=== PATIENT | female | born 1960 | race Caucasian/White ===

== ENCOUNTER 2016-10-24 15:30 | Inpatient (IN) | payer SELFPAY ==
[~2016-10-24] VITALS: Ht 154.9 cm; Wt 82.7 kg
[2016-10-24] MEDS ORDERED: IV NORMAL SALINE 1000ML BAG 1,000 ML IV SCH ×2 (16:02→18:01)
[2016-10-24 16:10] LABS: BASO # 0.1 x10^3/uL (0.0-0.2); BASO % 1 % (0-3); EOS % 1 % (0-3); HEMATOCRIT 41.6 % (36.0-47.0); HEMOGLOBIN 13.9 g/dL (12.0-15.5); LYMPH # 3.2 x10^3/uL (1.0-4.8); LYMPH % 37 % (24-48); MEAN CORPUSCULAR HEMOGLOBIN 28 pg (25-35); MEAN CORPUSCULAR HGB CONC 34 g/dL (31-37); MEAN CORPUSCULAR VOLUME 84 fL (79-100); MONO % 7 % (0-9); NEUT % 55 % (31-73); PLATELET COUNT 270 x10^3/uL (140-400); RED BLOOD COUNT 4.97 x10^6/uL (3.50-5.40); RED CELL DISTRIBUTION WIDTH 13.8 % (11.5-14.5); WHITE BLOOD COUNT 8.6 x10^3/uL (4.0-11.0)
[2016-10-24] MEDS ORDERED: ASPIRIN 81 MG TAB.CHEW PO ONE (16:15)
[2016-10-24 16:25] LABS: GFR 56.9; POTASSIUM 3.3 mmol/L (3.5-5.1)
[2016-10-24] MEDS ORDERED: IV NORMAL SALINE 1000ML BAG 1,000 ML IV ONE (16:30)
[2016-10-24 16:32] LABS: ALBUMIN 3.6 g/dL (3.4-5.0); DIRECT BILIRUBIN 0.1 mg/dL (0.0-0.2); MAGNESIUM 2.1 mg/dL (1.8-2.4); TOTAL BILIRUBIN 0.4 mg/dL (0.2-1.0); TOTAL PROTEIN 7.5 g/dL (6.4-8.2)
--- NOTE | 2016-10-24 16:33 | EKG ---
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
--- NOTE | 2016-10-24 16:38 | RAD ---
Portable chest, 10/24/2016: History: Chest pain The heart size and pulmonary vascularity are normal. No pulmonary infiltrates are seen. There is no evidence of pleural fluid. Degenerative changes are evident in the spine. IMPRESSION: No acute cardiopulmonary abnormality is detected.
[2016-10-24 16:39] LABS: CKMB MASS 0.5 ng/mL (0.0-3.6); CREATINE KINASE 35 U/L (26-192)
--- NOTE | 2016-10-24 17:06 | RAD ---
PROCEDURE Head CT without contrast. HISTORY Memory loss. TECHNIQUE Computed tomographic images of the head were obtained without contrast. One or more of the following individualized dose reduction techniques were utilized for this examination: 1. Automated exposure control; 2. Adjustment of the mA and/or kV according to patient size; 3. Use of iterative reconstruction technique. COMPARISON None. FINDINGS There is no acute or subacute hemorrhage. There is no mass effect or midline shift. There is mild ventricular enlargement, slightly greater than expected for cerebral volume. There is a prominent sulcus within the right frontoparietal junction at the vertex, likely developmental. The richmond and white matter differentiation pattern is intact. There are subtle areas of hypodensity within the cerebral white matter, artifactual or due to chronic small vessel disease. There are suspected chronic fracture deformities of the nasal bones. The orbits and mastoid air cells are unremarkable. No calvarial lesion is seen. IMPRESSION 1. Mild ventricular enlargement, slightly greater than expected for cerebral volume. The possibility of mild hydrocephalus is not excluded. 2. Subtle areas of hypodensity within the cerebral white matter, a nonspecific finding which is likely artifactual or due to chronic small vessel disease. Electronically signed by: Eun Seay (Oct 24, 2016 17:04:44)
[2016-10-24 17:38] LABS: BILIRUBIN,URINE NEGATIVE (NEG); GLUCOSE,URINE NEGATIVE (NEG); NITRITE,URINE POSITIVE (NEG); PROTEIN,URINE NEGATIVE (NEG-TRACE); UROBILINOGEN,URINE 0.2 mg/dL (0.2 mg/dL)
[2016-10-24 17:48] LABS: BARBITURATES NEG (NEG); BENZODIAZEPINES NEG (NEG); CANNABINOIDS NEG (NEG); COCAINE NEG (NEG); METHADONE NEG (NEG); OPIATES NEG (NEG); PHENCYCLIDINE NEG (NEG)
[2016-10-24 17:49] LABS: BACTERIA,URINE MANY /HPF (0-FEW); RBC,URINE 0 /HPF (0-2); SQUAMOUS EPITHELIAL CELL,UR FEW /LPF
[2016-10-24 17:50] LABS: ETHANOL, URINE NEG (NEG)
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
[2016-10-24] MEDS ORDERED: ONDANSETRON PF 4 MG/2 ML VIAL. IV PRN (18:15)
[2016-10-24] MEDS ORDERED: ACETAMINOPHEN 325 MG TABLET. PO PRN (18:15)
--- NOTE | 2016-10-24 18:37 | ACF ---
Admission Forms Criteria MENTAL STATUS CHANGE Clinical Indications for Inpatient Care (Place 'X' for any and all applicable criteria): Ongoing inpatient care may be needed for ANY ONE of the following(1)(2)(3)(5)(6) : [X]I. Suspected serious etiology (eg, medical disorder, FRAMING CONSULTANT event) of mental status change [ ]II. Danger to self or others not manageable at lower level of care [ ]III. Grave disability (eg, inability to perform self care necessary at lower level of care) [ ]IV. Agitation or inappropriate behavior interfering with care for primary condition (eg, attempting to discontinue lines or drains prematurely, unable to cooperate with respiratory care) [ ]V. Delirium [A] [D][E] as described by ANY ONE of the following(26): [ ]a) Delirium due to alcohol or sedative [F] withdrawal [ ]b) Delirium of uncertain etiology that has not responded to appropriate empiric treatment [ ]c) Delirium that prevents performance of a life-sustaining function (eg, feeding or hydrating oneself) [ ]. General contraindications and/or Inappropriate clinical situations for Observational Care in patients with Mental Status Change, when ANY ONE of the following is required: [ ]a) Prediction of prolongation of LOS based on ANY ONE of the following may be considered as a contraindication for observational care 2, 3, 4, 5, 6, 7, 8, 9, 10, 11 [ ]i) Age > 65 yrs. [ ]ii) Patient arriving by ambulance [ ]iii) Patient with high acuity [ ]iv) Patient requiring vital sign monitoring [ ]v) Patient on IV medication [ ]b) Systolic blood pressures 180mmHg 3,12 [ ]c) Patient with altered mental status including delirium and other alteration of consciousness, (3) [ ]d) Patient whose discharge disposition will be to a senior care home or rehabilitation home should not be managed in Emergency Department Observation Unit. CMS rule requires 3 days hospital stay before such placement.3,13 [ ]e) Patient with failure to thrive due to broad array of etiologies 3,16,17 [ ]f) Inability to ambulate 3,14 Extended stay beyond goal length of stay for the primary condition may be needed until ALL of the following are present(3)(5): [ ]a) Underlying medical etiology of mental status change is absent, or has been established and adequately treated [ ]b) Danger to self or others is absent or manageable at lower level of care. [ ]c) Behavior crisis management, including physical or chemical restraints, is not required or available at lower level of car [ ]d) Substance or alcohol withdrawal is absent or manageable at lower level of care. [ ]e) Behavioral symptoms (eg, agitation, somnolence, inappropriate behavior) are absent, or are manageable at lower level of care. The original [facility] content created by [facility] has been revised. The portions of the content which have been revised are identified through the use of italic text or in bold, and [facility] has neither reviewed nor approved the modified material. All other unmodified content is copyright [facility]. Please see references footnoted in the original [facility] edition 2016 Admission Criteria Met?: Yes RONNIE AREVALO Oct 24, 2016 18:37
[2016-10-24 19:00] VITALS: BP 150/94
[2016-10-24] MEDS: IPRATRPIUM/ALBUTEROL 0.5/2.5MG 3 ML NEBU. NEB SCH ×2 (20:00→21:25)
[2016-10-24] MEDS: CEFTRIAXONE SODIUM 1 GM in IV NORMAL SALINE 50ML 50 ML IV SCH (20:58)
[2016-10-24 22:30] LABS: HCO3 ABG 25 mmol/L (21-28); PCO2 ABG 40 mmHg (35-46); PH ABG 7.41 (7.35-7.45); PO2 ABG 98 mmHg (75-108); SAT O2 ABG 97 % (92-99)
[2016-10-24 22:31] LABS: FIO2 ABG 21
[2016-10-24 22:53] VITALS: BP 114/69
[2016-10-24] MEDS ORDERED: FLUO20CA16 PO (23:26)
[2016-10-24] MEDS ORDERED: VENTOLIN HFA18 GM INH (23:26)
[2016-10-25] MEDS ORDERED: FENTANYL PF 100 MCG/2 ML VIAL. IV PRN (01:00)
[2016-10-25] MEDS: HYDROCODONE/APAP 5/325MG TABLET. PO PRN ×4 (05:35→22:54)
[2016-10-25 05:55] LABS: BASO % 1 % (0-3); EOS % 2 % (0-3); HEMATOCRIT 37.8 % (36.0-47.0); HEMOGLOBIN 12.4 g/dL (12.0-15.5); LYMPH # 3.6 x10^3/uL (1.0-4.8); LYMPH % 52 % (24-48); MEAN CORPUSCULAR HEMOGLOBIN 28 pg (25-35); MEAN CORPUSCULAR HGB CONC 33 g/dL (31-37); MEAN CORPUSCULAR VOLUME 86 fL (79-100); MONO % 7 % (0-9); NEUT % 38 % (31-73); PLATELET COUNT 214 x10^3/uL (140-400); RED BLOOD COUNT 4.39 x10^6/uL (3.50-5.40); RED CELL DISTRIBUTION WIDTH 13.5 % (11.5-14.5); WHITE BLOOD COUNT 6.8 x10^3/uL (4.0-11.0)
[2016-10-25 06:25] LABS: CALCIUM 8.4 mg/dL (8.5-10.1); CREATININE 0.8 mg/dL (0.6-1.0); GFR 73.7; POTASSIUM 4.1 mmol/L (3.5-5.1)
[2016-10-25] MEDS: IPRATRPIUM/ALBUTEROL 0.5/2.5MG 3 ML NEBU. NEB SCH ×2 (06:55→10:59)
[2016-10-25 07:00] VITALS: BP 160/95
[2016-10-25] MEDS ORDERED: ALPR2TAB2 PO (09:31)
[2016-10-25] MEDS ORDERED: TRAZ50TA15 PO (09:31)
[2016-10-25] MEDS ORDERED: LEVO100T PO (09:31)
[2016-10-25] MEDS ORDERED: CEFTRIAXONE SODIUM 1 GM in IV NORMAL SALINE 50ML 50 ML IV SCH (10:30)
[2016-10-25] MEDS: ALPRAZOLAM 1 MG TABLET PO PRN (10:36)
[2016-10-25] MEDS: LEVOTHYROXINE 100 MCG TABLET PO SCH (10:36)
[2016-10-25 11:00] VITALS: BP 166/96
[2016-10-25] MEDS ORDERED: GADOBUTROL 10 MMOL/10 ML VIAL IV ONE (13:45)
[2016-10-25] MEDS ORDERED: traZODone 50 MG TABLET. PO SCH (14:00)
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
[2016-10-25] MEDS ORDERED: traZODone 50 MG TABLET. PO PRN (14:43)
[2016-10-25 15:00] VITALS: BP 159/98
[2016-10-25] MEDS: FLUOXETINE HCL 20 MG CAPSULE PO SCH ×2 (15:05→20:44)
[2016-10-25] MEDS: FLUTICASONE 50MCG/NASAL SPRAY 16GM BOTTLE. NS SCH (15:06)
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
[2016-10-25 19:00] VITALS: BP 143/84
[2016-10-25] MEDS: CEFTRIAXONE SODIUM 1 GM in IV NORMAL SALINE 50ML 50 ML IV SCH (19:48)
[2016-10-25 23:00] VITALS: BP 126/75
[2016-10-26 01:10] LABS: VITAMIN D25(OH)TOTAL 17.9 ng/mL (30.0-100.0)
--- NOTE | 2016-10-26 01:35 | EEG ---
DATE OF SERVICE: 10/25/2016 EEG number: [id number] OBJECTIVE: This is a 56-year-old female patient with history of acute mental status changes and confusion and chronic memory loss. EEG was requested to evaluate cerebral activity and help rule out subclinical seizure. METHODS: Twenty electrodes were applied according to the international 10-20 electrode placement system. EKG monitoring, hyperventilation, intermittent photic stimulation, monopolar and bipolar montages are routinely utilized. The record was obtained on a digital system with video monitoring. FINDINGS: 1. Background: The patient was recorded in the awake and drowsy states. No actual sleep state was recorded. The overall background amplitude is 10-20 microvolts. A posterior dominant rhythm of 9-10 Hz is observed. 2. Abnormalities: No specific epileptiform discharge or electrographic seizure is seen. No focal or diffuse slowing. 3. Activation Hyperventilation was performed with good efforts and normal response. Intermittent photic stimulation was performed with photic driving. IMPRESSION: This EEG is a normal study for the awake and drowsy states. No actual sleep state was recorded. No focal, lateralizing, specific epileptiform discharge, or electrographic seizure is seen. LAMAR MC MD DR: MARSHA/ivy JOB#: [id number] / [id number] JANI
[2016-10-26] MEDS: HYDROCODONE/APAP 5/325MG TABLET. PO PRN ×2 (02:46→12:44)
[2016-10-26] MEDS: ALPRAZOLAM 1 MG TABLET PO PRN ×2 (02:47→12:44)
[2016-10-26 03:00] VITALS: BP 144/86
[2016-10-26] MEDS: LEVOTHYROXINE 100 MCG TABLET PO SCH (06:05)
[2016-10-26 07:05] VITALS: BP 153/98
[2016-10-26] MEDS: FLUTICASONE 50MCG/NASAL SPRAY 16GM BOTTLE. NS SCH (08:43)
[2016-10-26] MEDS: FLUOXETINE HCL 20 MG CAPSULE PO SCH ×2 (08:43→16:35)
[2016-10-26] MEDS ORDERED: ALBUTEROL SULFATE 2.5 MG/3 ML NEBU. NEB PRN (09:00)
[2016-10-26] MEDS ORDERED: ALBUTEROL SULFATE 2.5 MG/3 ML NEBU. NEB SCH (09:00)
[2016-10-26] MEDS ORDERED: CALCIUM CARBONATE 500 MG TAB.CHEW PO SCH (10:00)
[2016-10-26 11:00] VITALS: BP 156/87
--- NOTE | 2016-10-26 11:51 | PDOC ---
PROGRESS NOTES Assessment Assessment 10-26-2016 EEG on 10/25/16 was a normal study. Patient refused to be seen and examed by neurology on 10/26/16 stating upset for patient education for mental and cognitive function exercise given on 10/25/16. Objective Objective Vital Signs Date Time Temp Pulse Resp B/P Pulse Ox O2 Delivery O2 Flow Rate FiO2 10/26/16 08:00 Room Air 10/26/16 07:05 97.5 80 16 153/98 100 97.5 Intake and Output 10/26/16 07:00 Intake Total 1000 ml Output Total 650 ml Balance 350 ml Intake Oral 1000 ml Output Urine Total 650 ml # Voids 1 Vitals Signs Vitals VS - Last 72 Hours, by Label Date Time Temp Pulse Resp B/P Pulse Ox O2 Delivery O2 Flow Rate FiO2 10/26/16 08:00 Room Air 10/26/16 07:05 97.5 80 16 153/98 100 Room Air 97.5 10/26/16 03:48 98 Room Air 10/26/16 03:00 98.2 85 18 144/86 98 Room Air 98.2 10/26/16 02:46 98 Room Air 10/25/16 23:00 97.7 85 18 126/75 95 Room Air 97.7 10/25/16 22:54 98 Room Air 10/25/16 20:00 Room Air 10/25/16 19:00 99.3 82 18 143/84 99 Room Air 99.3 10/25/16 18:10 98 Room Air 10/25/16 15:05 98 Room Air 10/25/16 15:00 96.7 85 18 159/98 98 Room Air 96.7 10/25/16 11:00 96.7 70 18 166/96 98 96.7 10/25/16 08:00 Room Air 10/25/16 07:00 96.6 80 18 160/95 97 Room Air 96.6 Laboratory Laboratory Microbiology 10/24/16 Urine Culture - Preliminary, Resulted 10/24/16 Urine Culture Result 1 ([facility]) - Preliminary, Resulted Medication Medications Current Medications Albuterol Sulfate (Ventolin Neb Soln) 2.5 mg PRN QID PRN NEB SHORTNESS OF BREATH; Start 10/26/16 at 09:00 Albuterol Sulfate (Ventolin Neb Soln) 2.5 mg QID NEB ; Start 10/26/16 at 09:00; Stop 10/26/16 at 09:00; Status DC Calcium Carbonate/ Glycine (Tums) 500 mg BID PO ; Start 10/26/16 at 10:00 Cyanocobalamin (Vitamin B-12) 1,000 mcg DAILY PO ; Start 10/26/16 at 12:00 Fluoxetine HCl (Prozac) 20 mg TID PO Last administered on 10/26/16 08:43; Start 10/25/16 at 14:00 Gadobutrol (Gadavist) 8 mmol 1X ONCE IV Last administered on 10/25/16t 13:57; Start 10/25/16 at 13:45; Stop 10/25/16 at 13:46; Status DC Trazodone HCl (Desyrel) 25 mg PRN BID PRN PO DEPRESSION; Start 10/25/16 at 14:43 Trazodone HCl (Desyrel) 50 mg TID PO ; Start 10/25/16 at 14:00; Stop 10/25/16 at 14:45; Status DC Vitamin D (Vitamin D3) 5,000 unit DAILY PO ; Start 10/26/16 at 12:00 Comment Review of Relevant I have reviewed the following items yary (where applicable) has been applied. LAMAR MC MD Oct 26, 2016 11:51
[2016-10-26] MEDS ORDERED: CHOLECALCIFEROL (VITAMIN D3) 5,000 UNIT CAPSULE PO SCH (12:00)
[2016-10-26] MEDS ORDERED: CYANOCOBALAMIN (VITAMIN B-12) 1,000 MCG TABLET. PO SCH (12:00)
--- NOTE | 2016-10-26 13:52 | PDOC ---
PROGRESS NOTES Chief Complaint Chief Complaint Confusion ASSESSMENT AND PLAN: 1. Confusion: no organic etiology. poss 2/2 hx brain injury and "mental inactivity" 2. Chest pain: noncardiac, but rather musculoskeletal 3. UTI: E.coli. switch to PO cipro 4. ALAMO: flonase for sinus congestion 5. Dispo: home today Vitals Vitals Vital Signs Date Time Temp Pulse Resp B/P Pulse Ox O2 Delivery O2 Flow Rate FiO2 10/26/16 12:44 100 Room Air 10/26/16 11:00 96.8 78 16 156/87 96.8 Review of Systems Review of Systems feels well. happy to go home ELSA SHELTON MD Oct 26, 2016 13:52
--- NOTE | 2016-10-26 13:55 | DISCH ---
DISCHARGE INSTRUCTIONS Condition on Discharge Condition on Discharge: Stable Activity After Discharge Activity Instructions for Disc: No restrictions Diet after Discharge Diet after Discharge: Regular Contacting the DR. after DC Call your doctor for: Concerns you may have Follow-Up Follow up with: PCP in 1 month ELSA SHELTON MD Oct 26, 2016 13:55
[2016-10-26] MEDS ORDERED: CIPR500T PO (14:10)
[2016-10-26 15:05] VITALS: BP 136/84
--- NOTE | 2016-10-28 22:17 | DS ---
DATE OF DISCHARGE: 10/26/2016 CHIEF COMPLAINT: Confusion. HOSPITAL COURSE: The patient is a 56-year-old woman with past medical history of traumatic brain injury who presented with increased confusion. She also complained of chest pain, which was deemed to be noncardiac and/or related to musculoskeletal etiologies. In workup of her confusion, CT as well as MRI of the brain were essentially without any acute changes. She, however, was diagnosed with an E. coli urinary tract infection and therefore started on Cipro. Her mental status seemed to be improving. Neurology consult was obtained as well and she was deemed to be "mentally inactive" with not enough stimulation and brain exercises were recommended to her. PHYSICAL EXAMINATION: Please refer to note from same day. DISCHARGE DAY: 10/26/2016 DISCHARGE DISPOSITION: To home. DISCHARGE DIAGNOSES: 1. Urinary tract infection. 2. Acute mental status changes. DISCHARGE CONDITION: Improved. DISCHARGE MEDICATIONS: Please refer to MAR. DISCHARGE INSTRUCTIONS: The patient will follow up with her PCP in 2 weeks. ELSA SHELTON MD DR: MARGIE/nts JOB#: [id number] / [id number] EVETTE Ge
== END 2016-10-26 19:11 | disposition home or self-care (01) | DRG 689 ==
LOC: ER 15:30 → 6 SOUTH 17:12
PROVIDERS: ADMIT Internal Medicine; ATTEND Internal Medicine
DX: N39.0 Urinary tract infection, site not specified (principal); G93.40 Encephalopathy, unspecified; B96.20 Unspecified Escherichia coli [E. coli] as the cause of diseases classified elsewhere; I10 Essential (primary) hypertension; E05.90 Thyrotoxicosis, unspecified without thyrotoxic crisis or storm; I73.9 Peripheral vascular disease, unspecified; E03.9 Hypothyroidism, unspecified; F32.9 Major depressive disorder, single episode, unspecified; F41.9 Anxiety disorder, unspecified; R07.89 Other chest pain; R09.81 Nasal congestion; Z79.899 Other long term (current) drug therapy; Z88.8 Allergy status to other drugs, medicaments and biological substances; Z84.89 Family history of other specified conditions; Z87.828 Personal history of other (healed) physical injury and trauma; Z88.1 Allergy status to other antibiotic agents; Z88.5 Allergy status to narcotic agent; Z81.8 Family history of other mental and behavioral disorders
CPT/HCPCS: 36415; 36600; 70450; 70553; 71010; 80048; 80076; 81001; 82140; 82306; 82553; 82607; 82805; 83690; 83735; 83880; 84443; 84484; 85027; 87086; 87186; 93005; 94640; 94760; 95816; 96360; 96361; A9585; G0481; J0696; J3010; J7030; J7620; 99285-25